=== PATIENT | male | born 2000 | race African-American/Black ===

== ENCOUNTER 2024-01-22 16:41 | Outpatient (CLI) | payer OTHER, SELFPAY ==
[2024-01-22 23:44] LABS: Chlamydia DNA Amplified* NOT DETECTED (No Detected)
[2024-01-23 00:01] LABS: GC DNA Amplified* DETECTED (No Detected)
== END 2024-01-22 16:42 | disposition home or self-care (01) ==
LOC: LKVREF 16:41
PROVIDERS: Visit Provider Nurse Practitioner Family
DX: R31.9 Hematuria, unspecified (principal)
CPT/HCPCS: 87086; 87491; 87591